=== PATIENT | male | born 1970 | race Caucasian/White ===

== ENCOUNTER → 2020-04-14 10:24 | Outpatient (BNVA) | payer BC, SELFPAY | PROVIDERS: Family Provider Family Medicine; Visit Provider Nurse Practitioner Family | DX: Z20.828 Contact with and (suspected) exposure to other viral communicable diseases (principal); J06.9 Acute upper respiratory infection, unspecified | CPT/HCPCS: 87426 ==

== ENCOUNTER 2020-12-08 11:12 | Outpatient (CLI) | payer OTHER, BC, SELFPAY ==
[2020-12-08 12:44] LABS: HIV 1 & 2 Antibody Non-Reactive (Non-Reactiv); HIV 1 & 2 Antigen Non-Reactive (Non-Reactiv)
[2020-12-08 12:53] LABS: Hepatitis B Surface AB 78.6 (11.5-1000); Hepatitis B Surface Antigen Non-Reactive (Nonreactive); Hepatitis C Virus Antibody Non-Reactive (Nonreactive)
== END 2020-12-08 11:13 | disposition home or self-care (01) ==
PROVIDERS: Visit Provider Family Medicine
DX: Z20.5 Contact with and (suspected) exposure to viral hepatitis (principal)
CPT/HCPCS: 86706; 86803; 87340; 87806

== ENCOUNTER → 2021-01-14 09:25 | Outpatient (BNVA) | payer OTHER, BC, SELFPAY | PROVIDERS: PCP Family Medicine; Visit Provider Nurse Practitioner Family | DX: Z20.5 Contact with and (suspected) exposure to viral hepatitis (principal) | CPT/HCPCS: 87806; 87902 ==

== ENCOUNTER 2022-08-24 18:21 | Emergency (ER) | payer OTHER, SELFPAY ==
--- NOTE | 2022-08-24 18:23 | XRR_ITS ---
PROCEDURE INFORMATION: Exam: XR Right Wrist Exam date and time: 08/24/2022 6:44 PM Age: 51 years old Clinical indication: Injury or trauma; Other: Hit; Work related; Blunt trauma (contusions or hematomas); Wrist; Right TECHNIQUE: Imaging protocol: Radiologic exam of the right wrist. Views: 3 or more views. COMPARISON: No relevant prior studies available. FINDINGS: Bones/joints: There is no evidence for acute fracture or malalignment. Soft tissues: Normal. XR/XR wrist RT min 3V* [id number] IMPRESSION: No acute findings.
[2022-08-24 18:30] VITALS: BP 144/83; PULSE 73; RESP 16; TEMP 36.4; O2SAT 98
--- NOTE | 2022-08-24 19:14 | ED_ITS ---
HPI - Extremity Problem General: Chief complaint: Extremity Injury, Upper Stated complaint: right wrist injury Workmens comp Time Seen by Provider: 08/24/22 18:35 History of Present Illness: Patient is in today for injury to the right wrist. He reports that he was doing right training and a 2 x 4 was thrown and came around hitting him with the corner of the board onto the right radial side wrist. He reports that it hit his arm and knocked it backwards. He reports initially he had immediate numbness and tingling to the hand but that has improved some. He reports that he is up-to-date on his tetanus vaccine Associated symptoms: Deny chest pain or fever(s) Review of Systems Const: Denies: fever(s) or chills Card: Denies: chest pain or palpitations Resp: Denies: dyspnea, productive cough or non-productive cough Musc: Reports: joint pain and joint swelling [facility] ED PFSH: Family History Other Diabetes Heart disease Social History Smoking and tobacco status: former smoker Adopted: No Marital status: Number of children: 1 service: No Physical Exam Const: COMMON NORMALS: no acute distress, patient oriented x3 and alert Resp: COMMON NORMALS: normal respiratory effort and No use of accessory muscles Extremity: NARRATIVE EXTREMITY EXAM: Right radial wrist with a small scabbed lesion in the area of concern where the patient reports the board hit him. This is tender to palpation and slightly swollen. 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 Radial and ulnar pulses are palpable. CSM within normal limits. Neuro: COMMON NORMALS: patient oriented x3 SENSORIUM/ORIENTATION: Yes alert Course Vital Signs: Vital signs: Vital Signs Temperature 97.5 F L 08/24/22 18:30 Pulse Rate 73 08/24/22 18:30 Respiratory Rate 16 08/24/22 18:30 Blood Pressure 144/83 08/24/22 18:30 Pulse Oximetry 98 08/24/22 18:30 Oxygen Delivery Me thod Room Air 08/24/22 18:30 MDM - Extremity (Nontraumatic) Medical Decision Making Differentials include contusion wrist, fracture wrist X-ray 3 view right wrist wet read: No acute osseous deformity Radiologist read no acute findings Will discharge patient with conservative treatment. Ed wrap to help with pain and swelling. Patient reports he is up-to-date on tetanus vaccination. Keep the scabbed lesion clean and dry. Follow-up with primary care provider. Return to the ER as needed for new or worsening symptoms Lab Data Radiology Impressions Wrist X-Ray 08/24/22 18:23 IMPRESSION: No acute findings. Discharge Plan Discharge Patient Disposition: Home Clinical Impression: Contusion of right wrist, Work related injury Condition: Stable Prescriptions: No Action febuxostat [Uloric] 40 mg tablet 40 mg PO DAILY cetirizine [24Hour Allergy] 10 mg tablet 10 mg PO DAILY PRN atorvastatin 10 mg tablet 10 mg PO DAILY valacyclovir 1 gram tablet 1,000 mg PO TID 7 Days Qty: 21 0RF prednisone 20 mg tablet 20 mg PO DAILY 5 Days Qty: 5 0RF azithromycin 250 mg tablet See Rx Instructions PO .COMPLEX Qty: 6 0RF Rx Instructions: take 500 mg today (day 1), then 250 mg for 4 days (days 2-5) PO albuterol sulfate [Ventolin HFA] 90 mcg/actuation HFA aerosol inhaler 2 puff inhalation Q6H PRN (Reason: shortness of breath or wheezing) Qty: 8.5 0RF Discharge Orders: Discharge ED (Routine); Ordered 08/24/22 Ordered By: Christal Lara Referrals: Christophe De La Vega DO [Primary Care Provider] - Discharge Diet: Usual diet Discharge Activity: Resume usual activity Patient Instructions: Contusion in Adults (ED) Activity Restrictions/Additional Instructions: You may use Ed wrap as needed to help with pain and swelling. Ice, rest, elevate the extremity. Keep the scabbed lesion clean and dry. No tetanus update was done today as you said you were current. Follow-up with primary care provider as needed. Return to the ER for new or worsening symptoms Coding Level of Care Code ED Administrative Nursing Supervisor for Lindsay Rice
== END 2022-08-24 20:06 | disposition home or self-care (01) ==
PROVIDERS: Emergency Provider Nurse Practitioner Family; PCP Family Medicine
DX: S60.211A Contusion of right wrist, initial encounter (principal); W20.8XXA Other cause of strike by thrown, projected or falling object, initial encounter; Y99.0 Civilian activity done for income or pay; Z87.891 Personal history of nicotine dependence
CPT/HCPCS: 73110; 99283

== ENCOUNTER → 2023-09-20 10:21 | Outpatient (BNVA) | payer BC, SELFPAY | PROVIDERS: PCP Family Medicine; Visit Provider Family Medicine | DX: Z00.00 Encounter for general adult medical examination without abnormal findings (principal); M79.673 Pain in unspecified foot; E03.9 Hypothyroidism, unspecified; E55.9 Vitamin D deficiency, unspecified; Z13.6 Encounter for screening for cardiovascular disorders; L57.0 Actinic keratosis | CPT/HCPCS: 80053; 80061; 82607; 82652; 84443; 85025 ==

== ENCOUNTER → 2023-10-22 15:55 | Outpatient (BNVA) | payer BC, SELFPAY | PROVIDERS: PCP Family Medicine; Visit Provider Family Medicine | DX: N28.9 Disorder of kidney and ureter, unspecified (principal) | CPT/HCPCS: 80048 ==

== ENCOUNTER → 2024-09-26 12:12 | Outpatient (BNVA) | payer BC, SELFPAY | PROVIDERS: PCP Family Medicine; Visit Provider Family Medicine | DX: Z00.00 Encounter for general adult medical examination without abnormal findings (principal); M19.90 Unspecified osteoarthritis, unspecified site; E03.9 Hypothyroidism, unspecified | CPT/HCPCS: 80053; 80061; 82607; 83036; 84443; 84550; 85025 ==

== ENCOUNTER 2024-11-14 11:39 | Outpatient (CLI) | payer SELFPAY | END 2024-11-14 11:40 | disposition home or self-care (01) | PROVIDERS: PCP Family Medicine | DX: Z01.89 Encounter for other specified special examinations (principal) | CPT/HCPCS: 36415 ==